=== PATIENT | female | born 1995 | race Two or more races ===

== ENCOUNTER 2018-04-18 16:43 | Emergency (ER) | payer OTHER ==
--- NOTE | 2018-04-18 18:07 | EDPHY ---
H & P Time Seen by Provider: 04/18/18 17:48 HPI/ROS: Chief complaint. Fever and URI symptoms HPI. Patient is a 22-year-old female presents to the emergency department with fever, body aches, runny nose and congestion, cough for the past 2-3 days. No recent travel or sick contacts however she does attend [facility]. She knows full body aches. No abdominal pain, vomiting, diarrhea. No rash. ROS 10 systems were reviewed and negative with the exception of the elements mentioned in the history of present illness Past Medical/Surgical History: Healthy Social History: Single, nonsmoker, no alcohol Smoking Status: Never smoked Physical Exam: General Appearance: Alert pleasant well-developed female mild distress vital signs show fever 37.3 Eyes: Pupils equal and round no pallor or injection. ENT, tympanic membranes are normal. Pharynx without injection. Mucous membranes are moist Respiratory: There are no retractions, lungs are clear to auscultation. Cardiovascular: Regular rate and rhythm. Gastrointestinal: Abdomen is soft and nontender, no masses, bowel sounds normal. Neurological: Awake and alert, sensory and motor exams grossly normal. Skin: Warm and dry, no rashes. Musculoskeletal: Neck is supple nontender. Extremities symmetrical, full range of motion. Psychiatric: Patient is oriented X 3, there is no agitation. Constitutional: Initial Vital Signs Temperature (C) 37.3 C 04/18/18 16:57 Heart Rate 91 04/18/18 16:57 Respiratory Rate 16 04/18/18 16:57 Blood Pressure 95/69 L 04/18/18 16:57 O2 Sat (%) 96 04/18/18 16:57 O2 Delivery Mode Room Air Allergies/Adverse Reactions: No Known Allergies Allergy (Unverified 04/18/18 16:57) Home Medications: Medication Instructions Recorded NK [No Known Home Meds] 04/18/18 Medical Decision Making Procedures: Rapid strep screen is negative ED Course/Re-evaluation: The patient and I discussed laboratory evaluation, treatment plan including criteria for return importance of follow-up and further evaluation. We discussed Tamiflu however she really is at the outer limits of recommended time frame for the Tamiflu. Differential Diagnosis: I think this is viral syndrome. No evidence of strep pharyngitis or pneumonia. - Data Points Laboratory Results: 04/18/18 04/18/18 Unknown 17:00 Group A Strep Screen NEGATIVE (NEGATIVE) Group A Strep DNA Pending Departure - Departure Disposition: Home, Routine, Self-Care Clinical Impression: Viral syndrome Condition: Good Instructions: Viral Syndrome (ED) Additional Instructions: Drink plenty of fluids and stay hydrated. Tylenol 650 mg every 4-6 hours, ibuprofen 400 mg every 6 hr as needed for achiness and fever Return for worsening symptoms Recheck in 2-3 days if not improving Referrals: [facility] [Cl[facility]] - 2-3 days, if not improved Stand Alone Forms: School Excuse
[2018-04-18 19:10] VITALS: BP 98/79
== END 2018-04-18 19:25 | disposition home or self-care (01) ==
DX: R50.9 Fever, unspecified (principal)